=== PATIENT | female | born 1975 | race Caucasian/White ===

== ENCOUNTER 2019-03-25 09:34 | Day surgery (SDC) | payer MEDICAID ==
[~2019-03-25 09:34] MED LIST: PROPOFOL INJ 200 MG/20 ML VIAL IV ONE
[2019-03-25 12:44] VITALS: BP 114/80
--- NOTE | 2019-03-25 13:01 | Operative Report ---
Operative Report DATE OF SURGERY: 03/25/19 Operative Report: The risks, benefits and alternatives of the procedure including the risk of bleeding, perforation requiring surgery have been explained to the patient in detail and informed consent has been obtained. Patient is taken back to the endoscopy suite and placed in a left, lateral decubital position. Timeout was called. Propofol medication is administered. Rectal examination is done which did not reveal any masses, tears or fissures. An Olympus videoscope was introduced into the patient's rectum. Scope was then carefully advanced all the way to the cecum. Cecum was identified by the usual anatomical landmarks including the ileocecal valve as well as the appendiceal office. Photodocumentation is obtained. Scope was then sequentially pulled back via the various segments of the colon including the ascending colon, hepatic flexure, transverse colon, splenic flexure, descending colon finally into the rectosigmoid portions of the colon. Retroflexion maneuvers performed. The risks benefits and alternatives of the procedure explained to the patient in detail and informed consent is obtained.A GIF Olympus video scope was inserted into the patient's mouth and hypopharynx, the esophagus is identified intubated and insufflated, the scope was then advanced through the esophagus stomach and duodenum ,retroflexion maneuver is done, the esophagus stomach and first and second portions of the duodenum examined PREOPERATIVE DIAGNOSIS: Gastroesophageal reflux disease. Blood in stools POSTOPERATIVE DIAGNOSIS: Right colon inflammation status post biopsy. Internal hemorrhoids. Gastritis status post biopsy without Helicobacter pylori OPERATION: Colonoscopy with biopsy. EGD with biopsy SURGEON: ALFREDO EMANUEL ANESTHESIA: LMAC TISSUE REMOVED OR ALTERED: As noted above. COMPLICATIONS: None. ESTIMATED BLOOD LOSS: None. INTRAOPERATIVE FINDINGS: As noted above. PROCEDURE: Patient tolerated the procedure well. No immediate postprocedure complications are noted. Patient is discharged in good condition. Discharge date 03/25/2019. Discharge diet: Regular. Discharge activity: Regular. 2 to 3-week follow-up to discuss findings. Patient is instructed to call the office or proceed to the emergency room should there be any further problems or questions. Wait on the pathology.
== END 2019-03-25 12:49 | disposition home or self-care (01) ==
LOC: END 09:34
PROVIDERS: ATTEND Internal Medicine Gastroenterology
DX: K52.9 Noninfective gastroenteritis and colitis, unspecified (principal); K64.8 Other hemorrhoids; K92.1 Melena; K21.9 Gastro-esophageal reflux disease without esophagitis; Z79.899 Other long term (current) drug therapy; Z88.0 Allergy status to penicillin
CPT/HCPCS: 43239; 45380; 88305 ×2; 00813; J2704; 813

== ENCOUNTER 2019-10-10 08:19 | Day surgery (SDC) | payer MEDICAID ==
[~2019-10-10 08:19] MED LIST changes: +LACTATED RINGERS 1000 ML IV PRN; +LIDOCAINE 0.5% INJ-PF (5 MG/ML) 50 ML SDV SUBCUT PRN
[2019-10-10] MEDS ORDERED: ONDANSETRON HCL INJ/PF 4 MG/2 ML SDV IV PRN (08:43)
[2019-10-10] MEDS ORDERED: PROMETHAZINE HCL INJ 25 MG/1 ML VIAL IV PRN (08:43)
[2019-10-10] MEDS ORDERED: DIPHENHYDRAMINE HCL 50 MG/ML VIAL IV PRN (08:43)
--- NOTE | 2019-10-10 11:17 | Operative Report ---
Operative Report DATE OF SURGERY: 10/10/19 Operative Report: The risks benefits and alternatives of the procedure explained to the patient in detail and informed consent is obtained.A GIF Olympus video scope was inserted into the patient's mouth and hypopharynx, the esophagus is identified intubated and insufflated ,the scope was then advanced through the esophagus stomach and duodenum, retroflexion maneuver is done, the esophagus stomach and first and second portions of the duodenum examined PREOPERATIVE DIAGNOSIS: Epigastric pain rule out peptic ulcer disease POSTOPERATIVE DIAGNOSIS: Gastritis status post biopsy rule out Helicobacter pylori OPERATION: EGD with biopsy SURGEON: ALFREDO EMANUEL ANESTHESIA: LMAC TISSUE REMOVED OR ALTERED: As noted above. COMPLICATIONS: None. ESTIMATED BLOOD LOSS: None. INTRAOPERATIVE FINDINGS: As noted above. PROCEDURE: Patient tolerated the procedure well. No immediate postprocedure complications are noted. Patient is discharged in good condition. Discharge date 10/10/2019. Discharge diet: Regular. Discharge activity: Regular. 2 to 3-week follow-up to discuss findings. Patient is instructed to call the office or proceed to the emergency room should there be any further problems or questions. Wait on the pathology.
[2019-10-10 13:18] VITALS: BP 103/60
== END 2019-10-10 11:00 | disposition home or self-care (01) ==
LOC: OROUT 08:19
PROVIDERS: ATTEND Internal Medicine Gastroenterology
DX: K31.9 Disease of stomach and duodenum, unspecified (principal); K21.9 Gastro-esophageal reflux disease without esophagitis; F17.210 Nicotine dependence, cigarettes, uncomplicated; Z03.818 Encounter for observation for suspected exposure to other biological agents ruled out; Z88.0 Allergy status to penicillin
CPT/HCPCS: 43239; 87635; 88342 ×2; 88305 ×2; 00731; J2704; C9803; 731

== ENCOUNTER 2020-02-12 06:55 | Day surgery (SDC) | payer MEDICAID ==
[2020-02-12] MEDS ORDERED: PROPOFOL INJ 200 MG/20 ML VIAL IV ONE ×2 (07:36→09:39)
--- NOTE | 2020-02-12 09:45 | Operative Report ---
Operative Report DATE OF SURGERY: 02/12/20 Operative Report: The risk, benefits and alternatives of the procedure including the risks of bleeding, perforation requiring surgery have been explained to the patient in detail and informed consent has been obtained. Patient is taken to the endoscopy suite and placed in a left, lateral decubital position. Timeout was called. Propofol medication is administered. Rectal examination is done which did not reveal any masses, tears or fissures. An Olympus videoscope was i ntroduced into the patient's rectum. The scope was then carefully advanced all the way to the cecum. It is unclear if the scope actually reached the cecum. The prep was incomplete I suspect that I was there based on the anatomical structure but objective confirmation could not be met it is likely an incomplete colonoscopy at this point. The scope was then carefully withdrawn via the distal segments of the colon and retroflexion maneuver is performed. There appeared to be anatomical landmarks that are suggestive of the ascending colon, hepatic flexure, transverse colon, splenic flexure, descending colon and finally into the rectosigmoid portions of the colon. Retroflexion maneuver is performed. PREOPERATIVE DIAGNOSIS: Change in bowel habits. Epigastric pain POSTOPERATIVE DIAGNOSIS: Incomplete prep. Right colon inflammation status post biopsy. Colon polyp in the descending colon removed via snare polypectomy. Internal hemorrhoids. Gastritis status post biopsy OPERATION: Colonoscopy with snare polypectomy. Colonoscopy with biopsy. EGD with biopsy SURGEON: ALFREDO EMANUEL ANESTHESIA: LMAC TISSUE REMOVED OR ALTERED: As noted above. COMPLICATIONS: None. ESTIMATED BLOOD LOSS: None. INTRAOPERATIVE FINDINGS: As noted above. PROCEDURE: Patient tolerated the procedure well. No immediate postprocedure complications are noted. Patient is discharged in good condition. Discharge date 02/12/2020. Discharge diet: Regular. Discharge activity: Regular. 2 to 3-week follow-up to discuss findings. Patient is instructed to call the office or proceed to the emergency room should there be any further problems or questions. Wait on the pathology. Surveillance colonoscopy in 3 to 5 years. At that point consideration of alternative prep
[2020-02-12 10:15] VITALS: BP 112/79
[2020-02-12] MEDS ORDERED: SIMETHICONE 80 MG TAB.CHEW ONE (10:24)
== END 2020-02-12 10:40 | disposition home or self-care (01) ==
LOC: END 06:55
PROVIDERS: ATTEND Internal Medicine Gastroenterology
DX: K29.50 Unspecified chronic gastritis without bleeding (principal); K63.5 Polyp of colon; K64.8 Other hemorrhoids; K44.9 Diaphragmatic hernia without obstruction or gangrene; G47.00 Insomnia, unspecified; Z03.818 Encounter for observation for suspected exposure to other biological agents ruled out; Z80.0 Family history of malignant neoplasm of digestive organs; Z79.899 Other long term (current) drug therapy; Z87.891 Personal history of nicotine dependence
CPT/HCPCS: 43239; 45380; 45385; 87635; 88305 ×2; J2704; C9803; 88342